=== PATIENT | female | born 1995 | race Caucasian/White ===

== ENCOUNTER 2020-09-29 03:56 | Inpatient (IN) | payer OTHER ==
[2020-09-29] MEDS ORDERED: SODIUM CHLORIDE 0.9% 1,000 ML IV STA (04:03)
[2020-09-29] MEDS ORDERED: NALOXONE 0.4 MG/ML 1 ML VIAL IVP STA (04:30)
--- NOTE | 2020-09-29 04:40 | ED ---
Overdose HPI - General Stated Complaint: Overdose Time Seen by Provider: 09/29/20 04:02 Source: EMS Mode of arrival: EMS Limitations: no limitations - History of Present Illness Initial Comments: This patient is 25-year-old woman brought to have evaluation after an overdose. The patient states that she had impulsively taken a handful of pills that were at the house she is standing. She states she was not being suicidal. Complaint: accidental overdose Onset/Timin -: minutes(s) Intent: other How Overdose Was Discovered: family/friend present at time Context: Intentional Overdose: relationship problems Treatments Prior to Arrival: none - Related Data Allergies Allergy/AdvReac Type Severity Reaction Status Date / Time No Known Allergies Allergy Verified 09/30/17 17:36 Review of Systems ROS Statement: Those systems with pertinent positive or pertinent negative responses have been documented in the HPI. ROS Other: All systems not noted in ROS Statement are negative. Constitutional: Denies: fever, chills, weakness Eyes: Denies: vision change Respiratory: Denies: cough, dyspnea Cardiovascular: Denies: chest pain, palpitations, edema, syncope Gastrointestinal: Reports: nausea. Denies: abdominal pain, vomiting, diarrhea Genitourinary: Denies: dysuria, hematuria Musculoskeletal: Denies: back pain Skin: Denies: rash Neurological: Denies: headache, weakness, numbness Psychiatric: Denies: depression, auditory hallucinations, visual hallucinations, homicidal thoughts, suicidal thoughts Past Medical History Additional Past Medical History / Comment(s): Chrons History of Any Multi-Drug Resistant Organisms: None Reported Additional Past Surgical History / Comment(s): surgical - 2 Past Psychological History: No Psychological Hx Reported Past Drug Use History: Cocaine, Heroin General Exam General appearance: alert, in no apparent distress Head exam: Present: atraumatic, normocephalic Eye exam: Present: normal appearance. Absent: scleral icterus, conjunctival injection ENT exam: Present: normal oropharynx Neck exam: Present: normal inspection Respiratory exam: Present: normal lung sounds bilaterally. Absent: respiratory distress, wheezes, rales, rhonchi, stridor Cardiovascular Exam: Present: regular rate, normal rhythm, normal heart sounds. Absent: systolic murmur, diastolic murmur, rubs, gallop GI/Abdominal exam: Present: soft. Absent: distended, tenderness, guarding, rebound, rigid, mass Extremities exam: Present: normal inspection, normal capillary refill Back exam: Present: normal inspection. Absent: CVA tenderness (R), CVA tenderness (L) Neurological exam: Present: alert, oriented X3 Psychiatric exam: Absent: depressed, agitated, anxious, flat affect, manic, homicidal ideation, suicidal ideation Skin exam: Present: warm, dry, intact, normal color. Absent: rash Course Vital Signs 09/29/20 09/29/20 09/29/20 03:56 04:31 04:34 Temperature 98.3 F Pulse Rate 114 H 96 92 Respiratory 16 12 Rate Blood Pressure 104/54 75/40 82/43 O2 Sat by Pulse 100 98 98 Oximetry 09/29/20 09/29/20 09/29/20 04:36 04:39 04:41 Temperature Pulse Rate 109 H 105 H 96 Respiratory 12 12 12 Rate Blood Pressure 114/66 106/62 95/62 O2 Sat by Pulse 100 100 Oximetry 09/29/20 09/29/20 09/29/20 04:44 04:45 04:48 Temperature Pulse Rate 115 H 111 H 89 Respiratory 12 12 12 Rate Blood Pressure 103/66 96/68 99/62 O2 Sat by Pulse 100 100 100 Oximetry 09/29/20 09/29/20 09/29/20 04:51 04:55 05:00 Temperature Pulse Rate 87 86 86 Respiratory 12 12 12 Rate Blood Pressure 100/57 97/57 94/53 O2 Sat by Pulse 100 100 100 Oximetry 09/29/20 09/29/20 09/29/20 05:05 05:10 05:15 Temperature Pulse Rate 85 85 85 Respiratory 12 12 12 Rate Blood Pressure 93/51 92/53 89/55 O2 Sat by Pulse 100 100 100 Oximetry 09/29/20 09/29/20 09/29/20 05:20 05:25 05:30 Temperature Pulse Rate 85 85 84 Respiratory 12 12 12 Rate Blood Pressure 93/51 92/53 95/54 O2 Sat by Pulse 100 100 100 Oximetry 09/29/20 09/29/20 09/29/20 05:35 05:40 05:45 Temperature Pulse Rate 85 84 84 Respiratory 12 12 12 Rate Blood Pressure 91/52 88/53 98/52 O2 Sat by Pulse 99 99 99 Oximetry 09/29/20 09/29/20 09/29/20 05:50 05:55 06:00 Temperature Pulse Rate 84 84 84 Respiratory 12 12 12 Rate Blood Pressure 87/53 84/52 88/57 O2 Sat by Pulse 99 99 99 Oximetry Medical Decision Making - Medical Decision Making 's patient is 25-year-old woman who presents to have evaluation after taking an overdose of what turned out to be quietapine and clonidine. Patient became moderately hypotensive but did respond to fluid bolus. The labs do show elevat ed AST ALT. The acute hepatitis panel was added, and per the recommendation of poison control patient will be treated as a possible subacute acetaminophen overdose. - Lab Data Result diagrams: 09/29/20 04:36 09/29/20 04:36 Lab Results 09/29/20 09/29/20 09/29/20 Range/Units 04:36 04:36 04:36 WBC 8.9 (3.8-10.6) k/uL RBC 4.59 (3.80-5.40) m/uL Hgb 13.7 (11.4-16.0) gm/dL Hct 41.5 (34.0-46.0) % MCV 90.4 (80.0-100.0) fL MCH 29.9 (25.0-35.0) pg MCHC 33.1 (31.0-37.0) g/dL RDW 14.5 (11.5-15.5) % Plt Count 238 (150-450) k/uL MPV 8.5 Neutrophils % 64 % Lymphocytes % 25 % Monocytes % 6 % Eosinophils % 1 % Basophils % 1 % Neutrophils # 5.7 (1.3-7.7) k/uL Lymphocytes # 2.3 (1.0-4.8) k/uL Monocytes # 0.5 (0-1.0) k/uL Eosinophils # 0.1 (0-0.7) k/uL Basophils # 0.0 (0-0.2) k/uL Sodium (137-145) mmol/L Potassium (3.5-5.1) mmol/L Chloride (98-107) mmol/L Carbon Dioxide (22-30) mmol/L Anion Gap mmol/L BUN (7-17) mg/dL Creatinine (0.52-1.04) mg/dL Est GFR (CKD-EPI)AfAm (>60 ml/min/1.73 sqM) Est GFR (CKD-EPI)NonAf (>60 ml/min/1.73 sqM) Glucose (74-99) mg/dL Calcium (8.4-10.2) mg/dL Total Bilirubin (0.2-1.3) mg/dL AST (14-36) U/L ALT (4-34) U/L Alkaline Phosphatase (38-126) U/L Total Protein (6.3-8.2) g/dL Albumin (3.5-5.0) g/dL Urine HCG, Qual Not Detected (Not Detectd) Salicylates mg/dL Urine Opiates Screen Not Detected (NotDetected) Ur Oxycodone Screen Not Detected (NotDetected) Urine Methadone Screen Not Detected (NotDetected) Ur Propoxyphene Screen Not Detected (NotDetected) Acetaminophen ug/mL Ur Barbiturates Screen Not Detected (NotDetected) U Tricyclic Antidepress Detected H (NotDetected) Ur Phencyclidine Scrn Not Detected (NotDetected) Ur Amphetamines Screen Not Detected (NotDetected) U Methamphetamines Scrn Not Detected (NotDetected) U Benzodiazepines Scrn Not Detected (NotDetected) Urine Cocaine Screen Detected H (NotDetected) U Marijuana (THC) Screen Detected H (NotDetected) Serum Alcohol mg/dL 09/29/20 Range/Units 04:36 WBC (3.8-10.6) k/uL RBC (3.80-5.40) m/uL Hgb (11.4-16.0) gm/dL Hct (34.0-46.0) % MCV (80.0-100.0) fL MCH (25.0-35.0) pg MCHC (31.0-37.0) g/dL RDW (11.5-15.5) % Plt Count (150-450) k/uL MPV Neutrophils % % Lymphocytes % % Monocytes % % Eosinophils % % Basophils % % Neutrophils # (1.3-7.7) k/uL Lymphocytes # (1.0-4.8) k/uL Monocytes # (0-1.0) k/uL Eosinophils # (0-0.7) k/uL Basophils # (0-0.2) k/uL Sodium 137 (137-145) mmol/L Potassium 3.7 (3.5-5.1) mmol/L Chloride 105 (98-107) mmol/L Carbon Dioxide 20 L (22-30) mmol/L Anion Gap 12 mmol/L BUN 7 (7-17) mg/dL Creatinine 0.57 (0.52-1.04) mg/dL Est GFR (CKD-EPI)AfAm >90 (>60 ml/min/1.73 sqM) Est GFR (CKD-EPI)NonAf >90 (>60 ml/min/1.73 sqM) Glucose 94 (74-99) mg/dL Calcium 9.3 (8.4-10.2) mg/dL Total Bilirubin 1.9 H (0.2-1.3) mg/dL AST 1003 H (14-36) U/L ALT 1752 H (4-34) U/L Alkaline Phosphatase 145 H (38-126) U/L Total Protein 6.1 L (6.3-8.2) g/dL Albumin 3.9 (3.5-5.0) g/dL Urine HCG, Qual (Not Detectd) Salicylates <1.0 mg/dL Urine Opiates Screen (NotDetected) Ur Oxycodone Screen (NotDetected) Urine Methadone Screen (NotDetected) Ur Propoxyphene Screen (NotDetected) Acetaminophen <10.0 ug/mL Ur Barbiturates Screen (NotDetected) U Tricyclic Antidepress (NotDetected) Ur Phencyclidine Scrn (NotDetected) Ur Amphetamines Screen (NotDetected) U Methamphetamines Scrn (NotDetected) U Benzodiazepines Scrn (NotDetected) Urine Cocaine Screen (NotDetected) U Marijuana (THC) Screen (NotDetected) Serum Alcohol 35 mg/dL - EKG Data -: EKG Interpreted by Me EKG shows normal: sinus rhythm, axis (Normal), intervals (Normal), QRS complexes (Normal) Rate: tachycardia (Rate 128 bpm) Interpretation: nonspecific ST-T wave changes Disposition Clinical Impression: Overdose Disposition: ADMITTED IP TO THIS [facility] Condition: Fair Is patient prescribed a controlled substance at d/c from ED?: No Referrals: None,Stated [Primary Care Provider] - 1-2 days
[2020-09-29 04:49] LABS: Basophils % (A) 1 %; Eosinophils # (A) 0.1 k/uL (0-0.7); Eosinophils % (A) 1 %; HCT 41.5 % (34.0-46.0); HGB 13.7 gm/dL (11.4-16.0); Lymphocytes # (A) 2.3 k/uL (1.0-4.8); Lymphocytes % (A) 25 %; MCH 29.9 pg (25.0-35.0); MCHC 33.1 g/dL (31.0-37.0); MCV 90.4 fL (80.0-100.0); Mean Platelet Volume 8.5; Monocytes # (A) 0.5 k/uL (0-1.0); Monocytes % (A) 6 %; Neutrophils # (A) 5.7 k/uL (1.3-7.7); Neutrophils % (A) 64 %; Platelet Count 238 k/uL (150-450); RBC 4.59 m/uL (3.80-5.40); RDW 14.5 % (11.5-15.5); WBC 8.9 k/uL (3.8-10.6)
--- NOTE | 2020-09-29 04:56 | XR ---
EXAMINATION TYPE: XR chest 1V portable DATE OF EXAM: 09/29/2020 COMPARISON: NONE HISTORY: Overdose. TECHNIQUE: Single view FINDINGS: Heart and mediastinum are normal. Lungs are clear. Diaphragm is normal. Bony thorax is inta ct. There are chest leads. IMPRESSION: Normal chest
[2020-09-29 04:58] LABS: Acetaminophen <10.0 ug/mL; African American GFR (CKD) >90 (>60 ml/min/1.73 sqM); Albumin 3.9 g/dL (3.5-5.0); Alcohol 35 mg/dL; Alkaline Phosphatase 145 U/L (38-126); Anion Gap 12 mmol/L; Blood Urea Nitrogen 7 mg/dL (7-17); Calcium 9.3 mg/dL (8.4-10.2); Carbon Dioxide 20 mmol/L (22-30); Chloride 105 mmol/L (98-107); Glucose 94 mg/dL (74-99); Non-African American GFR(CKD) >90 (>60 ml/min/1.73 sqM); Potassium 3.7 mmol/L (3.5-5.1); Salicylate <1.0 mg/dL; Sodium 137 mmol/L (137-145); Total Bilirubin 1.9 mg/dL (0.2-1.3); Total Protein 6.1 g/dL (6.3-8.2)
[2020-09-29 05:16] LABS: Cocaine Screen,Urine Detected (NotDetected); Phencyclidine Screen,Urine Not Detected (NotDetected)
[2020-09-29 05:17] LABS: Amphetamine Screen,Urine Not Detected (NotDetected); Barbiturate Screen,Urine Not Detected (NotDetected); Benzodiazepines Screen,Urine Not Detected (NotDetected); Methadone Screen, Urine Not Detected (NotDetected); Opiate Screen,Urine Not Detected (NotDetected); Oxycodone Screen, Urine Not Detected (NotDetected); Tricyclic Antidepressant,Urine Detected (NotDetected); Urn Cannabinoid Scrn Detected (NotDetected)
[2020-09-29 05:26] LABS: AST 1003 U/L (14-36)
[2020-09-29 05:27] LABS: ALT 1752 U/L (4-34)
[2020-09-29] MEDS ORDERED: NALOXONE 0.4 MG/ML 1 ML VIAL IV PRN (07:54)
[2020-09-29] MEDS ORDERED: ACETYLCYSTEINE IV 9,000 MG in DEXTROSE 5% IN WATER 200 ML IV ONE ×2 (08:30)
[2020-09-29] MEDS: SODIUM CHLORIDE 0.9% 1,000 ML IV SCH ×2 (09:00→18:27)
[2020-09-29 09:02] LABS: INR 1.4 (<1.2); Partial Thromboplastin Time 22.8 sec (22.0-30.0); Prothrombin Time 14.6 sec (9.0-12.0)
[2020-09-29] MEDS ORDERED: ACETYLCYSTEINE IV ONE ×2 (09:30→14:30)
[2020-09-29] MEDS ORDERED: WATER IV ONE ×2 (09:30→14:30)
[2020-09-29] MEDS ORDERED: DEXTROSE 5% IV ONE ×2 (09:30→14:30)
--- NOTE | 2020-09-29 12:16 | P.HPIM ---
History of Present Illness Patient is a 25-year-old female is admitted after overdose on Klonopin and Seroquel. Patient is excessively drowsy and unable to get much of the history from the patient patient is although arousable. Patient apparently denied any suicidal ideation. But did overdose on the tumor mentioned medications. Psychiatry was consulted. Patient has elevated liver enzymes with AST going to 1003 ALT 1752, because of which am patient is being admitted to medicine service. Patient is still not awake much. Patient had an EKG which is only showing mild increase in QTC up to 452 patient will be monitored on teletypesetter monitor. INR is bit elevated to 1.4. Hepatitis panel was ordered, urine drug screen is positive for cocaine, marijuana, tricyclic antidepressants. REVIEW OF SYSTEMS: CONSTITUTIONAL: No fever, no malaise, no fatigue. HEENT: No recent visual problems or hearing problems. Denied any sore throat. CARDIOVASCULAR: No chest pain, orthopnea, PND, no palpitations, no syncope. PULMONARY: No shortness of breath, no cough, no hemoptysis. GASTROINTESTINAL: No diarrhea, no nausea, no vomiting, no abdominal pain. NEUROLOGICAL: No headaches, no weakness, no numbness. HEMATOLOGICAL: Denies any bleeding or petechiae. GENITOURINARY: Denies any burning micturition, frequency, or urgency. MUSCULOSKELETAL/RHEUMATOLOGICAL: Denies any joint pain, swelling, or any muscle pain. ENDOCRINE: Denies any polyuria or polydipsia. The rest of the 14-point review of systems is negative. PHYSICAL EXAMINATION: GENERAL: The patient is excessively drowsy, not in any acute distress. Well developed, well nourished. HEENT: Pupils are round and equally reacting to light. EOMI. No scleral icterus. No conjunctival pallor. Normocephalic, atraumatic. No pharyngeal erythema. No thyromegaly. CARDIOVASCULAR: S1 and S2 present. No murmurs, rubs, or gallops. PULMONARY: Chest is clear to auscultation, no wheezing or crackles. ABDOMEN: Soft, nontender, nondistended, normoactive bowel sounds. No palpable organomegaly. MUSCULOSKELETAL: No joint swelling or deformity. EXTREMITIES: No cyanosis, clubbing, or pedal edema. NEUROLOGICAL: Gross neurological examination did not reveal any focal deficits. SKIN: No rashes. Assessment and plan -Overdose on Klonopin and Seroquel: Patient will be admitted to telemetry monit or patient with will be monitored for any acute prolongation. Poison control was contacted and they recommended a style cyst and although patient's Tylenol levels an not high and the there is no history patient to carry Tylenol-based medications to overdose on -Elevated liver enzymes, transaminases secondary to overdose on above-mentioned drugs we'll repeat the compress metabolic profile again later today and tomorrow morning and make sure they're not going up if they're going up will obtain an INR again patient present INR is 1.4. 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 -Mild elevated INR of 1.4 secondary to acute hepatitis from drug overdose DVT prophylaxis: Ambulation once she is awake Past Medical History Additional Past Medical History / Comment(s): Chrons History of Any Multi-Drug Resistant Organisms: None Reported Additional Past Surgical History / Comment(s): surgical - 2 Past Psychological History: No Psychological Hx Reported Past Drug Use History: Cocaine, Heroin Medications and Allergies Allergies Allergy/AdvReac Type Severity Reaction Status Date / Time No Known Allergies Allergy Verified 09/30/17 17:36 Physical Exam Vitals: Vital Signs Temp Pulse Resp BP Pulse Ox 09/29/20 11:13 74 99/58 09/29/20 08:00 79 18 101/54 99 09/29/20 07:30 80 16 101/55 99 09/29/20 07:00 80 16 103/57 99 09/29/20 06:30 81 16 100/58 99 09/29/20 06:00 84 12 88/57 99 09/29/20 05:55 84 12 84/52 99 09/29/20 05:50 84 12 87/53 99 09/29/20 05:45 84 12 98/52 99 09/29/20 05:40 84 12 88/53 99 09/29/20 05:35 85 12 91/52 99 09/29/20 05:30 84 12 95/54 100 09/29/20 05:25 85 12 92/53 100 09/29/20 05:20 85 12 93/51 100 09/29/20 05:15 85 12 89/55 100 09/29/20 05:10 85 12 92/53 100 09/29/20 05:05 85 12 93/51 100 08/08/21 05:00 86 12 94/53 100 09/29/20 04:55 86 12 97/57 100 09/29/20 04:51 87 12 100/57 100 09/29/20 04:48 89 12 99/62 100 09/29/20 04:45 111 H 12 96/68 100 09/29/20 04:44 115 H 12 103/66 100 09/29/20 04:41 96 12 95/62 100 09/29/20 04:39 105 H 12 106/62 100 09/29/20 04:36 109 H 12 114/66 09/29/20 04:34 92 82/43 98 09/29/20 04:31 96 12 75/40 98 09/29/20 03:56 98.3 F 114 H 16 104/54 100 Intake and Output 09/28/20 09/29/20 09/29/20 22:59 06:59 14:59 Other: Weight 58.967 kg Results CBC & Chem 7: 09/29/20 04:36 09/29/20 04:36 Labs: Abnormal Lab Results - Last 24 Hours (Table) 09/29/20 09/29/20 09/29/20 Range/Units 04:36 04:36 08:27 PT 14.6 H (9.0-12.0) sec INR 1.4 H (<1.2) Carbon Dioxide 20 L (22-30) mmol/L Total Bilirubin 1.9 H (0.2-1.3) mg/dL AST 1003 H (14-36) U/L ALT 1752 H (4-34) U/L Alkaline Phosphatase 145 H (38-126) U/L Total Protein 6.1 L (6.3-8.2) g/dL U Tricyclic Antidepress Detected H (NotDetected) Urine Cocaine Screen Detected H (NotDetected) U Marijuana (THC) Screen Detected H (NotDetected)
[2020-09-29 13:38] LABS: Hepatitis A Antibody IgM Non-Reactive (Non-Reactive); Hepatitis B Core IgM Non-Reactive (Non-Reactive); Hepatitis B Surface Antigen Non-Reactive (Non-Reactive); Hepatitis C IgG Antibody Reactive (Non-Reactive)
[2020-09-29 19:23] LABS: African American GFR (CKD) >90 (>60 ml/min/1.73 sqM); Albumin 2.9 g/dL (3.5-5.0); Alkaline Phosphatase 92 U/L (38-126); Anion Gap 7 mmol/L; Blood Urea Nitrogen 6 mg/dL (7-17); Calcium 8.7 mg/dL (8.4-10.2); Carbon Dioxide 23 mmol/L (22-30); Chloride 107 mmol/L (98-107); Glucose 113 mg/dL (74-99); Non-African American GFR(CKD) >90 (>60 ml/min/1.73 sqM); Potassium 3.9 mmol/L (3.5-5.1); Sodium 137 mmol/L (137-145); Total Bilirubin 2.6 mg/dL (0.2-1.3); Total Protein 5.4 g/dL (6.3-8.2)
[2020-09-29 19:36] LABS: ALT 1763 U/L (4-34); AST 1221 U/L (14-36)
[2020-09-30] MEDS: SODIUM CHLORIDE 0.9% 1,000 ML IV SCH ×3 (04:22→13:38)
[2020-09-30 08:31] LABS: African American GFR (CKD) >90 (>60 ml/min/1.73 sqM); Albumin 3.1 g/dL (3.5-5.0); Alkaline Phosphatase 115 U/L (38-126); Anion Gap 8 mmol/L; Blood Urea Nitrogen 8 mg/dL (7-17); Calcium 9.1 mg/dL (8.4-10.2); Carbon Dioxide 20 mmol/L (22-30); Chloride 110 mmol/L (98-107); Glucose 97 mg/dL (74-99); Non-African American GFR(CKD) >90 (>60 ml/min/1.73 sqM); Potassium 4.3 mmol/L (3.5-5.1); Sodium 138 mmol/L (137-145); Total Bilirubin 3.5 mg/dL (0.2-1.3); Total Protein 5.5 g/dL (6.3-8.2)
[2020-09-30 08:40] LABS: ALT 1938 U/L (4-34); AST 1208 U/L (14-36)
[2020-09-30 13:39] LABS: INR 1.2 (<1.2); Prothrombin Time 12.5 sec (9.0-12.0)
--- NOTE | 2020-09-30 13:45 | US ---
EXAMINATION TYPE: US gallbladder DATE OF EXAM: 09/30/2020 COMPARISON: NONE CLINICAL HISTORY: elevated liver enzymes. Overdose EXAM MEASUREMENTS: Liver Length: 14.9 cm Gallbladder Wall: 0.1 cm CBD: 0.4 cm Right Kidney: 10.3 x 4.8 x 3.6 cm Pancreas: wnl Liver: periportal wall brightness is noted especially left lobe Gallbladder: wnl Evidence for sonographic Biggs's sign: no CBD: wnl Right Kidney: No hydronephrosis or masses seen IMPRESSION: Nonspecific periportal wall brightness can be associated with hepatocellular disease dwayne elate clinically.
--- NOTE | 2020-09-30 14:11 | P.PN ---
Subjective Patient is a 25-year-old female is admitted after overdose on Klonopin and Seroquel. Patient is excessively drowsy and unable to get much of the history from the patient patient is although arousable. Patient apparently denied any suicidal ideation. But did overdose on the tumor mentioned medications. Psychiatry was consulted. Patient has elevated liver enzymes with AST going to 1003 ALT 1752, because of which am patient is being admitted to medicine service. Patient is still not awake much. Patient had an EKG which is only showing mild increase in QTC up to 452 patient will be monitored on complex human resources manager. INR is bit elevated to 1.4. Hepatitis panel was ordered, urine drug screen is positive for cocaine, marijuana, tricyclic antidepressants. 09/30/2020 Patient liver enzymes are a bit worse compared to yesterday but I'm expecting them to improve. Patient's INR improved from 1.4-1.2 patient is still drowsy goes back to sleep pretty quickly patient's QT is not prolonged more than as today. Repeat EKG is being obtained. I'll also obtain ultrasound of the liver. Assessment oncology will be consulted. We'll cut down the fluids to 75 mL per hour. Patient is positive for hepatitis C. Constitutional: Denied any fatigue denied any fever. Cardio vascular: denied any chest pain, palpitations Gastrointestinal denied any nausea vomiting Pulmonary: Denied any shortness of breath cough Neurologic denied any new focal deficits All inpatient medications were reviewed and appropriate changes in these medications as dictated in the interval history and assessment and plan. PHYSICAL EXAMINATION: GENERAL: The patient is excessively drowsy patient still falls back to sleep pretty quickly but bit more awake compared to yesterday, not in any acute distress. Well developed, well nourished. HEENT: Pupils are round and equally reacting to light. EOMI. No scleral icterus. No conjunctival pallor. Normocephalic, atraumatic. No pharyngeal erythema. No thyromegaly. CARDIOVASCULAR: S1 and S2 present. No murmurs, rubs, or gallops. PULMONARY: Chest is clear to auscultation, no wheezing or crackles. ABDOMEN: Soft, nontender, nondistended, normoactive bowel sounds. No palpable organomegaly. MUSCULOSKELETAL: No joint swelling or deformity. EXTREMITIES: No cyanosis, clubbing, or pedal edema. NEUROLOGICAL: Gross neurological examination did not reveal any focal deficits. SKIN: No rashes. Assessment and plan -Overdose on Klonopin and Seroquel: Patient will be admitted to complex human resources manager patient with will be monitored for any acute prolongation. Patient received a acetylcysteine [facility] clinicians from poison control although there is no evidence of acetaminophen overdose. -Hepatitis C probably chronic follow up with gastro-oncology as an outpatient -Elevated liver enzymes, transaminases secondary to overdose on above-mentioned drugs along with the hepatitis C. 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 -Mild elevated INR of 1.4 secondary to acute hepatitis from drug overdose DVT prophylaxis: Lovenox Objective - Vital Signs Vital signs: Vital Signs Temp 97.4 F L 09/30/20 08:00 Pulse 75 09/30/20 08:00 Resp 16 09/30/20 03:05 BP 107/72 09/30/20 08:00 Pulse Ox 98 09/30/20 08:00 Intake & Output 09/29/20 09/30/20 09/30/20 18:59 06:59 18:59 Intake Total 0 Output Total 1700 Balance 0 -1700 Weight 58.967 kg 55 kg Intake: Oral 0 Output: Urine 1700 Straight 800 Other: Voiding Method Toilet # Voids 1 0 - Labs CBC & Chem 7: 09/29/20 04:36 09/30/20 08:00 Labs: Abnormal Lab Results - Last 24 Hours (Table) 09/29/20 09/30/20 09/30/20 Range/Units 18:31 08:00 13:07 PT 12.5 H (9.0-12.0) sec INR 1.2 H (<1.2) Chloride 110 H (98-107) mmol/L Carbon Dioxide 20 L (22-30) mmol/L BUN 6 L (7-17) mg/dL Creatinine 0.46 L (0.52-1.04) mg/dL Glucose 113 H (74-99) mg/dL Total Bilirubin 2.6 H 3.5 H (0.2-1.3) mg/dL AST 1221 H 1208 H (14-36) U/L ALT 1763 H 1938 H (4-34) U/L Total Protein 5.4 L 5.5 L (6.3-8.2) g/dL Albumin 2.9 L 3.1 L (3.5-5.0) g/dL
--- NOTE | 2020-09-30 14:24 | P.CN ---
Psychiatric Consult - . Consult date: 09/30/20 Consult:: 09/30/20 14:23 IDENTIFYING DATA: This patient is a 25-year-old female who was admitted for overdose on Klonopin and Seroquel. HISTORY OF PRESENT ILLNESS: The patient presented to the hospital on 09/29/20, brought in by EMS for intentional overdose. As per ED note, the patient had impulsively taken a handful of pills, suspected to be Seroquel and Klonopin. The overdose was discovered by a friend was present at the time. Reportedly, the patient overdosed because of relationship problems with her current boyfriend. When he valued by this provider, the patient was quite somnolent and disoriented. She was not alert and oriented to place or time. The patient is unable to provide a clear history of events leading up to this hospitalization. When informed that it is reported that she overdosed and Seroquel and Klonopin, the patient vehemently denies this, stating that "I have never taken Seroquel in my life." She does admit that she has had significant issues with her boyfriend and describes an argument but is unable to provide a linear history. Furthermore, the patient does report a significant history of substance abuse and admits to using cocaine and other substances. She is unable to recall when she last used these. The patient is currently requesting to leave and expresses a strong desire to go to [facility]. As the patient is quite somnolent and disoriented, the interview was terminated as the patient is unable to appropriately engage and provide any clear history. PAST PSYCHIATRIC HISTORY: Vivitrol listed as a home medication for this patient. She is unable to provide any clear past psychiatric history. PAST MEDICAL HISTORY: Additional Past Medical History / Comment(s): Chrons History of Any Multi-Drug Resistant Organisms: None Reported Additional Past Surgical History / Comment(s): surgical - 2 Past Psychological History: No Psychological Hx Reported Past Drug Use History: Cocaine, Heroin ALLERGIES: NO KNOWN DRUG ALLERGIES. CHEMICAL DEPENDENCY HISTORY: Patient does admit to cocaine use and opiate abuse. She is unable to recall any other substance issues use prior to this admission. FAMILY PSYCHIATRIC/SUBSTANCE USE HISTORY: Unable to obtain SOCIAL HISTORY: Patient is unable to provide any clear history. She is noted to be single and unemployed. She has been staying with her significant other Ankit. MENTAL STATUS EXAM: General Appearance: Patient appears to be stated age but is somnolent, not alert, and unable to cooperate. Behavior: Patient is lying down in bed, in no acute distress, but one awoken, she is quite disoriented and displays significant psychomotor agitation. Speech: Patient's speech is nonspontaneous, slurred at times, with some word finding difficulty. Mood/Affect: Patient's mood is anxious. Affect is irritable and labile. Suicidality/Homicidality: Patient denies suicidal or homicidal ideation. Perceptions: Unable to assess Though content/process: Patient is quite disoriented and is disorganized. She is unable to provide any linear history. Memory and concentration: Patient is alert and oriented to person only. Concentration is grossly poor. Judgment and insight: Very poor. Laboratory Results - Last 24 Hours 09/29/20 09/30/20 09/30/20 18:31 08:00 13:07 PT 12.5 H INR 1.2 H Sodium 137 138 Potassium 3.9 4.3 Chloride 107 110 H Carbon Dioxide 23 20 L Anion Gap 7 8 BUN 6 L 8 Creatinine 0.46 L 0.54 Est GFR (CKD-EPI)AfAm >90 >90 Est GFR (CKD-EPI)NonAf >90 >90 Glucose 113 H 97 Calcium 8.7 9.1 Total Bilirubin 2.6 H 3.5 H AST 1221 H 1208 H ALT 1763 H 1938 H Alkaline Phosphatase 92 115 Total Protein 5.4 L 5.5 L Albumin 2.9 L 3.1 L Vital Signs Temp 97.4 F L 09/30/20 08:00 Pulse 75 09/30/20 08:00 Resp 16 09/30/20 03:05 BP 107/72 09/30/20 08:00 Pulse Ox 98 09/30/20 08:00 Intake & Output 09/29/20 09/30/20 09/30/20 18:59 06:59 18:59 Intake Total 0 Output Total 1700 Balance 0 -1700 Weight 58.967 kg 55 kg Intake: Oral 0 Output: Urine 1700 Straight 800 Other: Voiding Method Toilet # Voids 1 0 IMPRESSIONS: Acute intoxication - unknown substances Mood disorder, unspecified Cocaine use disorder History of opiate abuse PLAN: -At this time patient DOES NOT meet criteria for inpatient psychiatric admission. We will reevaluate the patient again tomorrow. Currently, the patient appears to be under the influence of the substances she has ingested and is unable to provide any clear and coherent history. She is grossly disorganized and is not alert and oriented to place or time. She is also quite somnolent and is struggling to stay awake during the initial psychiatric evaluation. -Patient DOES NOT have decision making capacity at this time and is unable to reason through and communicate/appreciate the risks, benefits and alternatives to treatment. -Would recommend the following medication changes/additions: No medication changes recommended at this time. -Continue 1:1 sitter for safety -Cannot leave AMA at this time. Patient will need a petition and certification if attempting to leave AMA. -Psychiatry will attempt to reevaluate the patient tomorrow.
[2020-09-30] MEDS ORDERED: traMADol 50 MG TAB PO PRN (16:11)
[2020-09-30] MEDS: ENOXAPARIN 40 MG/0.4 ML SYRINGE SQ SCH (17:43)
[2020-09-30] MEDS ORDERED: HALOPERIDOL LACTATE 5 MG/ML 1 ML VIAL IVP PRN (19:09)
[2020-09-30] MEDS ORDERED: DEXTROSE 5% IV ONE ×4 (21:35→22:35)
[2020-09-30] MEDS ORDERED: WATER IV ONE ×4 (21:35→22:35)
[2020-09-30] MEDS ORDERED: ACETYLCYSTEINE IV ONE ×4 (21:35→22:35)
[2020-10-01] MEDS ORDERED: HALOPERIDOL LACTATE 5 MG/ML 1 ML VIAL IM ONE (00:42)
[2020-10-01] MEDS ORDERED: LORazepam 2 MG/ML INJ IV STA (02:15)
[2020-10-01] MEDS ORDERED: THIAMINE 100 MG/ML 2 ML VIAL IM STA (02:17)
[2020-10-01] MEDS ORDERED: LORazepam 2 MG/ML INJ IV PRN ×2 (02:17)
--- NOTE | 2020-10-01 02:38 | P.EN ---
A team note 25 year old female admitted for drug over dose on antipsychotics. poison control recommended N acetylecestine. patient history is not clear, as patient is unable to provide any meaningful history she initially was somnolent upon presentation most of the time, however, today is day three of her hospital stay , and she seems to become more agitated, anxious and aggressive . she seems to be seeing things, and mumbling non coherent words. she suddenly stands up in her bed trying to leave. and staff has to reassure her to calm her down and keep her in bed. however she is becoming more aggressive, vital signs showing tachycardia and tremers suspicious of alcohol withdrawal picture . lungs clear to auscultation , BP stable , HR tachycardic , no fever, no leg edema bilaterally , abd soft. she was given multiple doses of Haldol earlier , without much benefit to improve her aggressive behavior which endangers her safety and safety of the staff plan will initiate CIWA protocol , for possible alcohol withdrawal syndrome patient will be given ativan as needed per CIWA scale manager security and safety at bedside will start with 2 mg of ativan IV now , due to patient showing signs of agitation and hallucinations (she seems to be looking at things in the room and mumbling words as if talking to someone ) she is also tachycardic and having tremors at this time 30 minutes were spent in the care of this patient
[2020-10-01 02:54] LABS: ABG Base Excess -1.4 mmol/L; ABG HCO3 23 mmol/L (21-25); ABG PCO2 36 mmHg (35-45); ABG PH 7.42 (7.35-7.45); ABG PO2 92 mmHg (83-108); ABG TCO2 24 mmol/L (19-24); Allen Test Performed? Yes
[2020-10-01] MEDS: SODIUM CHLORIDE 0.9% 1,000 ML IV SCH ×2 (07:33→18:19)
[2020-10-01] MEDS: ENOXAPARIN 40 MG/0.4 ML SYRINGE SQ SCH (09:46)
[2020-10-01 09:49] LABS: African American GFR (CKD) >90 (>60 ml/min/1.73 sqM); Anion Gap 7 mmol/L; Blood Urea Nitrogen 3 mg/dL (7-17); Calcium 8.7 mg/dL (8.4-10.2); Carbon Dioxide 24 mmol/L (22-30); Chloride 110 mmol/L (98-107); Glucose 98 mg/dL (74-99); Non-African American GFR(CKD) >90 (>60 ml/min/1.73 sqM); Potassium 3.6 mmol/L (3.5-5.1); Sodium 141 mmol/L (137-145)
[2020-10-01] MEDS: LORazepam 2 MG/ML INJ IV PRN ×2 (11:29→20:07)
[2020-10-01 11:40] LABS: Bilirubin, Conjugated 0.8 mg/dL (0.0-0.3); Bilirubin, Delta 1.1 mg/dL (0.0-0.2); Total Bilirubin 2.9 mg/dL (0.2-1.3); Total Protein 5.4 g/dL (6.3-8.2)
--- NOTE | 2020-10-01 13:55 | P.PN ---
Progress Note - Text Progress Note Date: 10/01/20 Interval History: Patient was seen resting in bed and was unarousable and unable to participate in the psychiatric evaluation. Present at bedside is the patient's parents. The patient's mother reports that the patient has been endorsing significant psychotic symptoms shortly prior to this admission. She reports that the patient has called her concerned that people been following her endorsing significant amounts paranoia and auditory hallucinations. The patient's mother does state that she is uncertain whether the patient has been using illicit substances when endorsing the psychotic symptoms. The patient has had a long history of substance abuse comes that have been going on for years. The patient's mother also describes that the patient has had a significant history of mood lability, unstable relationships, and impulsive and dangerous behaviors. The patient did recently receive Vivitrol. Per discussion with the patient's nurse, the patient became quite agitated and disoriented in the middle of the night. The patient believed that she was in a circus and began throwing objects off standing on her bed. She required the use of IM medications and received Haldol 4 mg and Ativan as well to sedate her. Mental Status Exam: General Appearance: Patient is lying down in bed, dressed in hospital gown, and appears in no acute distress. Behavior: Somnolent and unarousable. Speech: Unable to assess Mood/Affect: Unable to assess Suicidality/Homicidality: Unable to assess Perceptions: Unable to assess Though content/process: Unable to assess Memory and concentration: Unable to assess Judgment and insight: Unable to assess Vital Signs Temp 97.9 F 10/01/20 08:00 Pulse 114 H 10/01/20 08:00 Resp 20 10/01/20 02:45 BP 137/90 10/01/20 08:00 Pulse Ox 99 10/01/20 08:00 Intake & Output 09/30/20 10/01/20 10/01/20 18:59 06:59 18:59 Intake Total 50 250 Output Total 1725 Balance 50 -1725 250 Weight 41.5 kg Intake: Intake, IV Titration 250 Amount Dextrose 5% in Water 1, 250 000 ml @ 47.609 mls/hr IV .Q23H ONE with Acetylcysteine IV 19,000 mg Rx#:[id number] Oral 50 Output: Urine 1725 Straight 875 Other: Voiding Method Toilet Toilet # Voids 2 Laboratory Results - Last 24 Hours 10/01/20 10/01/20 10/01/20 02:52 08:42 08:42 Sample Site rbrac ABG pH 7.42 ABG pCO2 36 ABG pO2 92 ABG HCO3 23 ABG Total CO2 24 ABG O2 Saturation 98.0 H ABG Base Excess -1.4 Misael Test Yes FiO2 21 Sodium 141 Potassium 3.6 Chloride 110 H Carbon Dioxide 24 Anion Gap 7 BUN 3 L Creatinine 0.45 L Est GFR (CKD-EPI)AfAm >90 Est GFR (CKD-EPI)NonAf >90 Glucose 98 Calcium 8.7 Total Bilirubin 2.9 H Conjugated Bilirubin 0.8 H Unconjugated Bilirubin 1.0 Delta Bilirubin 1.1 H AST 919 H ALT 1658 H Alkaline Phosphatase 112 Total Protein 5.4 L Albumin 3.0 L Assessment Acute intoxication - unknown substances Mood disorder, unspecified Cocaine use disorder History of opiate abuse Plan: -At this time patient DOES NOT meet criteria for inpatient psychiatric admission. We will reevaluate the patient again tomorrow. The patient continues to be unable to participate in psychiatric evaluation. She is quite somnolent and unarousable at this time. -Will order TSH, B12, folate, and ammonia level. -Patient DOES NOT have decision making capacity at this time and is unable to reason through and communicate/appreciate the risks, benefits and alternatives to treatment. -Would recommend the following medication changes/additions: No medication changes recommended at this time. -Continue 1:1 sitter for safety -Cannot leave AMA at this time. Patient will need a petition and certification if attempting to leave AMA. -Psychiatry will attempt to reevaluate the patient tomorrow.
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
--- NOTE | 2020-10-01 17:49 | P.PN ---
Subjective Patient is a 25-year-old female is admitted after overdose on Klonopin and Seroquel. Patient is excessively drowsy and unable to get much of the history from the patient patient is although arousable. Patient apparently denied any suicidal ideation. But did overdose on the tumor mentioned medications. Psychiatry was consulted. Patient has elevated liver enzymes with AST going to 1003 ALT 1752, because of which am patient is being admitted to medicine service. Patient is still not awake much. Patient had an EKG which is only showing mild increase in QTC up to 452 patient will be monitored on engine monitor. INR is bit elevated to 1.4. Hepatitis panel was ordered, urine drug screen is positive for cocaine, marijuana, tricyclic antidepressants. 09/30/2020 Patient liver enzymes are a bit worse compared to yesterday but I'm expecting them to improve. Patient's INR improved from 1.4-1.2 patient is still drowsy goes back to sleep pretty quickly patient's QT is not prolonged more than as today. Repeat EKG is being obtained. I'll also obtain ultrasound of the liver. Assessment oncology will be consulted. We'll cut down the fluids to 75 mL per hour. Patient is positive for hepatitis C. 10/01/2020 Because of severe agitation which is uncontrolled by Haldol patient received Ativan believing that patient may have alcohol withdrawals although there is no evidence of all call abuse history. Patient is positive for hepatitis C because of which are gastric body was consulted and gastric body is obtaining hepatitis C quantitative and genotype pain. Patient is quite a bit drowsy because of Ativan. Patient liver enzymes although coming down. Patient TSH is extremely low at 0.015 and obtain T4 levels., Ultrasound did not show any significant abnormality patient globin is also coming down at this time. Patient was a valid by gastroneurology as well as psychiatry as today. Patient is quite drowsy arousable Constitutional: Denied any fatigue denied any fever. Cardio vascular: denied any chest pain, palpitations Gastrointestinal denied any nausea vomiting Pulmonary: Denied any shortness of breath cough Neurologic denied any new focal deficits All inpatient medications were reviewed and appropriate changes in these medications as dictated in the interval history and assessment and plan. PHYSICAL EXAMINATION: GENERAL: The patient is excessively drowsy patient still falls back to sleep pretty quickly , not in any acute distress. Well developed, well nourished. HEENT: Pupils are round and equally reacting to light. EOMI. No scleral icterus. No conjunctival pallor. Normocephalic, atraumatic. No pharyngeal erythema. No thyromegaly. CARDIOVASCULAR: S1 and S2 present. No murmurs, rubs, or gallops. PULMONARY: Chest is clear to auscultation, no wheezing or crackles. ABDOMEN: Soft, nontender, nondistended, normoactive bowel sounds. No palpable organomegaly. MUSCULOSKELETAL: No joint swelling or deformity. EXTREMITIES: No cyanosis, clubbing, or pedal edema. NEUROLOGICAL: Gross neurological examination did not reveal any focal deficits. SKIN: No rashes. Assessment and plan -Overdose on Klonopin and Seroquel: Patient was monitored in engine monitor patient is still drowsy because of Ativan she received today. -Hepatitis C probably chronic follow up with gastro-oncology as an outpatient -Elevated liver enzymes, transaminases secondary to overdose on above-mentioned drugs along with the hepatitis C. 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 -Mild elevated INR of 1.4 secondary to acute hepatitis from drug overdose INR did improve -Extremely low TSH will obtain T4 level DVT prophylaxis: Lovenox Objective - Vital Signs Vital signs: Vital Signs Temp 97.9 F 10/01/20 08:00 Pulse 94 10/01/20 12:00 Resp 20 10/01/20 02:45 BP 132/76 10/01/20 12:00 Pulse Ox 98 10/01/20 12:00 Intake & Output 09/30/20 10/01/20 10/01/20 18:59 06:59 18:59 Intake Total 50 250 Output Total 1725 Balance 50 -1725 250 Weight 41.5 kg Intake: Intake, IV Titration 250 Amount Dextrose 5% in Water 1, 250 000 ml @ 47.609 mls/hr IV .Q23H ONE with Acetylcysteine IV 19,000 mg Rx#:[id number] Oral 50 Output: Urine 1725 Straight 875 Other: Voiding Method Toilet Toilet # Voids 2 - Labs CBC & Chem 7: 09/29/20 04:36 10/01/20 08:42 Labs: Abnormal Lab Results - Last 24 Hours (Table) 10/01/20 10/01/20 10/01/20 Range/Units 02:52 08:42 08:42 ABG O2 Saturation 98.0 H (94-97) % Chloride 110 H (98-107) mmol/L BUN 3 L (7-17) mg/dL Creatinine 0.45 L (0.52-1.04) mg/dL Total Bilirubin 2.9 H (0.2-1.3) mg/dL Conjugated Bilirubin 0.8 H (0.0-0.3) mg/dL Delta Bilirubin 1.1 H (0.0-0.2) mg/dL AST 919 H (14-36) U/L ALT 1658 H (4-34) U/L Total Protein 5.4 L (6.3-8.2) g/dL Albumin 3.0 L (3.5-5.0) g/dL TSH (0.465-4.680) mIU/L 10/01/20 Range/Units 15:04 ABG O2 Saturation (94-97) % Chloride (98-107) mmol/L BUN (7-17) mg/dL Creatinine (0.52-1.04) mg/dL Total Bilirubin (0.2-1.3) mg/dL Conjugated Bilirubin (0.0-0.3) mg/dL Delta Bilirubin (0.0-0.2) mg/dL AST (14-36) U/L ALT (4-34) U/L Total Protein (6.3-8.2) g/dL Albumin (3.5-5.0) g/dL TSH <0.015 L (0.465-4.680) mIU/L
[2020-10-01] MEDS: THIAMINE 100 MG TAB PO SCH (18:18)
[2020-10-01 18:47] LABS: T4, Free (Free Thyroxine) 1.61 ng/dL (0.78-2.19)
[2020-10-01] MEDS ORDERED: DEXTROSE 5% IV ONE (22:00)
[2020-10-01] MEDS ORDERED: WATER IV ONE (22:00)
[2020-10-01] MEDS ORDERED: ACETYLCYSTEINE IV ONE (22:00)
[2020-10-02] MEDS: SODIUM CHLORIDE 0.9% 1,000 ML IV SCH ×3 (05:54→21:10)
[2020-10-02] MEDS: THIAMINE 100 MG TAB PO SCH ×2 (06:55→17:56)
[2020-10-02] MEDS: ENOXAPARIN 40 MG/0.4 ML SYRINGE SQ SCH (08:25)
[2020-10-02 08:40] LABS: INR 1.3 (<1.2); Prothrombin Time 13.5 sec (9.0-12.0)
[2020-10-02 08:46] LABS: African American GFR (CKD) >90 (>60 ml/min/1.73 sqM); Albumin 3.4 g/dL (3.5-5.0); Alkaline Phosphatase 118 U/L (38-126); Anion Gap 9 mmol/L; Blood Urea Nitrogen 4 mg/dL (7-17); Calcium 8.8 mg/dL (8.4-10.2); Carbon Dioxide 21 mmol/L (22-30); Chloride 108 mmol/L (98-107); Creatine Kinase 933 U/L (30-135); Glucose 97 mg/dL (74-99); Non-African American GFR(CKD) >90 (>60 ml/min/1.73 sqM); Potassium 3.4 mmol/L (3.5-5.1); Sodium 138 mmol/L (137-145); Total Bilirubin 3.8 mg/dL (0.2-1.3); Total Protein 5.9 g/dL (6.3-8.2)
[2020-10-02 09:02] LABS: ALT 1766 U/L (4-34); AST 1009 U/L (14-36)
[2020-10-02 10:16] LABS: HCT 36.6 % (34.0-46.0); HGB 12.6 gm/dL (11.4-16.0); MCH 30.7 pg (25.0-35.0); MCHC 34.3 g/dL (31.0-37.0); MCV 89.7 fL (80.0-100.0); Platelet Count 204 k/uL (150-450); RBC 4.08 m/uL (3.80-5.40); RDW 14.6 % (11.5-15.5); WBC 5.5 k/uL (3.8-10.6)
[2020-10-02] MEDS ORDERED: POTASSIUM CHLORIDE ER 20 MEQ TAB.ER PO STA (13:08)
--- NOTE | 2020-10-02 13:09 | P.PN ---
Subjective Patient is a 25-year-old female is admitted after overdose on Klonopin and Seroquel. Patient is excessively drowsy and unable to get much of the history from the patient patient is although arousable. Patient apparently denied any suicidal ideation. But did overdose on the tumor mentioned medications. Psychiatry was consulted. Patient has elevated liver enzymes with AST going to 1003 ALT 1752, because of which am patient is being admitted to medicine service. Patient is still not awake much. Patient had an EKG which is only showing mild increase in QTC up to 452 patient will be monitored on brake repairer. INR is bit elevated to 1.4. Hepatitis panel was ordered, urine drug screen is positive for cocaine, marijuana, tricyclic antidepressants. 09/30/2020 Patient liver enzymes are a bit worse compared to yesterday but I'm expecting them to improve. Patient's INR improved from 1.4-1.2 patient is still drowsy goes back to sleep pretty quickly patient's QT is not prolonged more than as today. Repeat EKG is being obtained. I'll also obtain ultrasound of the liver. Assessment oncology will be consulted. We'll cut down the fluids to 75 mL per hour. Patient is positive for hepatitis C. 10/01/2020 Because of severe agitation which is uncontrolled by Haldol patient received Ativan believing that patient may have alcohol withdrawals although there is no evidence of all call abuse history. Patient is positive for hepatitis C because of which are gastric body was consulted and gastric body is obtaining hepatitis C quantitative and genotype pain. Patient is quite a bit drowsy because of Ativan. Patient liver enzymes although coming down. Patient TSH is extremely low at 0.015 and obtain T4 levels., Ultrasound did not show any significant abnormality patient globin is also coming down at this time. Patient was a valid by gastroneurology as well as psychiatry as today. 10/02/2020 Patient is bit more awake today, patient liver enzymes are still elevated to about thousand. This is probably from a hepatitis C the patient is still drowsy because of Ativan she is receiving Ativan will be scheduled and do not believe patient has all call withdraws patient was evaluated by psychiatry discussed with psychiatry they're not recommending any inpatient psychiatry hospitalization as a patient overdosed to get high rather than suicidal ideation. Patient's potassium is low which will be replaced Patient is still drowsy arousable Constitutional: Denied any fatigue denied any fever. Cardio vascular: denied any chest pain, palpitations Gastrointestinal denied any nausea vomiting Pulmonary: Denied any shortness of breath cough Neurologic denied any new focal deficits All inpatient medications were reviewed and appropriate changes in these medications as dictated in the interval history and assessment and plan. PHYSICAL EXAMINATION: GENERAL: The patient is excessively drowsy patient still falls back to sleep pretty quickly , not in any acute distress. Well developed, well nourished. HEENT: Pupils are round and equally reacting to light. EOMI. No scleral icterus. No conjunctival pallor. Normocephalic, atraumatic. No pharyngeal erythema. No thyromegaly. CARDIOVASCULAR: S1 and S2 present. No murmurs, rubs, or gallops. PULMONARY: Chest is clear to auscultation, no wheezing or crackles. ABDOMEN: Soft, nontender, nondistended, normoactive bowel sounds. No palpable organomegaly. MUSCULOSKELETAL: No joint swelling or deformity. EXTREMITIES: No cyanosis, clubbing, or pedal edema. NEUROLOGICAL: Gross neurological examination did not reveal any focal deficits. SKIN: No rashes. Assessment and plan -Overdose on Klonopin and Seroquel: Patient was monitored in brake repairer patient is still drowsy because of Ativan she received today. -Hepatitis C probably chronic follow up with gastro-oncology as an outpatient -Elevated liver enzymes, transaminases secondary to overdose on above-mentioned drugs along with the hepatitis C. 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 -Mild elevated INR of secondary to acute hepatitis from drug overdose INR did improve -Extremely low TSH, T4 level is within normal limits patient probably has sick euthyroid syndrome DVT prophylaxis: Lovenox Objective - Vital Signs Vital signs: Vital Signs Temp 97.8 F 10/02/20 10:46 Pulse 90 10/02/20 10:46 Resp 15 10/02/20 10:46 BP 119/81 10/02/20 10:46 Pulse Ox 100 10/02/20 10:46 Intake & Output 10/01/20 10/02/20 10/02/20 18:59 06:59 18:59 Intake Total 250 Output Total 300 450 300 Balance -50 -450 -300 Weight 40 kg 40 kg Intake: Intake, IV Titration 250 Amount Dextrose 5% in Water 1, 250 000 ml @ 47.609 mls/hr IV .Q23H ONE with Acetylcysteine IV 19,000 mg Rx#:[id number] Output: Urine 300 450 300 Other: Voiding Method Toilet Diaper Diaper # Voids 2 - Labs CBC & Chem 7: 10/02/20 09:47 10/02/20 07:51 Labs: Abnormal Lab Results - Last 24 Hours (Table) 10/01/20 10/02/20 10/02/20 Range/Units 15:04 07:51 07:51 PT 13.5 H (9.0-12.0) sec INR 1.3 H (<1.2) Potassium 3.4 L (3.5-5.1) mmol/L Chloride 108 H (98-107) mmol/L Carbon Dioxide 21 L (22-30) mmol/L BUN 4 L (7-17) mg/dL Creatinine 0.39 L (0.52-1.04) mg/dL Total Bilirubin 3.8 H (0.2-1.3) mg/dL AST 1009 H (14-36) U/L ALT 1766 H (4-34) U/L Creatine Kinase 933 H (30-135) U/L Total Protein 5.9 L (6.3-8.2) g/dL Albumin 3.4 L (3.5-5.0) g/dL TSH <0.015 L (0.465-4.680) mIU/L
--- NOTE | 2020-10-02 13:13 | P.PN ---
Progress Note - Text Progress Note Date: 10/02/20 Interval History: Patient was seen resting in bed and awake and alert and participated in the psychiatric interview. The patient is a poor historian in regards to events leading up to this hospitalization. She vehemently denies any intentional overdose. She does not recall ever taking klonopin or seroquel. She reports she was drinking a significant amount of alcohol, just to enjoy herself. She does admit to recent use of crack cocaine 2-3 days prior to her admission to this hospital. The patient vehemently denies any suicidal or homicidal ideation, intention, and/or plan. She denies any auditory or visual hallucinations. She reports no paranoia or delusions. The patient expresses that she hasn't been using drugs since she was 17 years old. She reports that she began with IV heroin use at the age of 17. She reports that she had some time with sobriety and began using again at the age of 24. She reports that she has been to inpatient rehabilitation multiple times. The patient states that she "does not do well in these controlled settings." She states that she feels like she "has no control over my life and others are controlling and I hated." The patient was informed that she has control over whether she uses drugs or not and that was the reason why she was brought to the hospital in the first place. She does a history of psychotic symptoms, but this occurs in the context of heavy substance abuse. She reports that this occurred when she was using a lot of "uppers." The patient is requesting discharge. Mental Status Exam: General Appearance: Patient is lying down in bed, dressed in hospital gown, and appears in no acute distress. Behavior: Psychomotor activity is normal. Patient is eating lunch calmly. Eye contact was appropriate. Speech: The patient's speech is spontaneous, with normal rate, tone, volume, and fluency. Mood/Affect: The patient's mood is "feeling okay." Affect is obstinate and at times irritable. Suicidality/Homicidality: The patient vehemently denies any suicidal or homicidal ideation, intention, and/or plan. Perceptions: The patient is not endorsing any auditory or visual hallucinations. Though content/process: Thought content is devoid of any delusional thoughts. Thought process appears to be linear and logical. Memory and concentration: The patient's memory continues to be somewhat impaired but her concentration appears to be grossly intact. She is currently alert and oriented in all spheres. Judgment and insight: The patient displays significantly poor judgment, and somewhat limited insight due to her severe and chronic substance abuse. Vital Signs Temp 97.8 F 10/02/20 10:46 Pulse 90 10/02/20 10:46 Resp 15 10/02/20 10:46 BP 119/81 10/02/20 10:46 Pulse Ox 100 10/02/20 10:46 Intake & Output 10/01/20 10/02/20 10/02/20 18:59 06:59 18:59 Intake Total 250 Output Total 300 450 300 Balance -50 -450 -300 Weight 40 kg 40 kg Intake: Intake, IV Titration 250 Amount Dextrose 5% in Water 1, 250 000 ml @ 47.609 mls/hr IV .Q23H ONE with Acetylcysteine IV 19,000 mg Rx#:[id number] Output: Urine 300 450 300 Other: Voiding Method Toilet Diaper Diaper # Voids 2 Laboratory Results - Last 24 Hours 10/01/20 10/01/20 10/02/20 15:04 15:04 07:51 WBC RBC Hgb Hct MCV MCH MCHC RDW Plt Count MPV PT 13.5 H INR 1.3 H Sodium Potassium Chloride Carbon Dioxide Anion Gap BUN Creatinine Est GFR (CKD-EPI)AfAm Est GFR (CKD-EPI)NonAf Glucose Calcium Total Bilirubin AST ALT Alkaline Phosphatase Ammonia 29 Creatine Kinase Total Protein Albumin TSH <0.015 L Free T4 1.61 10/02/20 10/02/20 10/02/20 07:51 09:06 09:47 WBC 5.5 RBC 4.08 Hgb 12.6 Hct 36.6 MCV 89.7 MCH 30.7 MCHC 34.3 RDW 14.6 Plt Count 204 MPV 9.0 PT INR Sodium 138 Potassium 3.4 L Chloride 108 H Carbon Dioxide 21 L Anion Gap 9 BUN 4 L Creatinine 0.39 L Est GFR (CKD-EPI)AfAm >90 Est GFR (CKD-EPI)NonAf >90 Glucose 97 Calcium 8.8 Total Bilirubin 3.8 H AST 1009 H ALT 1766 H Alkaline Phosphatase 118 Ammonia 10 Creatine Kinase 933 H Total Protein 5.9 L Albumin 3.4 L TSH Free T4 Assessment Acute intoxication - patient reports alcohol, cocaine, and possibly other drugs. Mood disorder, unspecified Cocaine use disorder History of opiate abuse Plan: -At this time patient DOES NOT meet criteria for inpatient psychiatric admission. It appears that the patient was intoxicated as a recreational activity and did not intend to overdose or be altered to the point warranting hospitalization. She is vehemently denying any suicidal or homicidal ideation, intention, and/or plan. She is future oriented and desires to continue her substance abuse treatment in the outpatient setting. -Would recommend the following medication changes/additions: No medication changes recommended at this time. -Continue 1:1 sitter for safety -Cannot leave AMA at this time. Patient will need a petition and certification if attempting to leave AMA. -Recommend social work consult to provide patient with resources for substance abuse. -Patient is currently cleared psychiatrically for discharge. Primary issue is the patient's substance abuse. We will continue to follow as long as the patient is admitted on the hospital floor and will reevaluate if there are any changes in situation and plan.
--- NOTE | 2020-10-02 14:00 | P.PN ---
Subjective Progress Note Date: 10/02/20 Principal diagnosis: Transaminitis, overdose Patient is seen and examined lying in bed. She continues to have a sitter at the bedside. Nursing reports she was more alert and answering questions. She is sleeping at this time abut arousable. She states she was never diagnosed with Hepatitis C but her boyfriend has hepatitis C and ther have shared needles. She denies any known liver disease and states she does not drink heavily. She denies any abdominal pain, nausea, or vomiting. Ammonia levels have been normal. AST and ALT trending up. The liver serology ordered and pending. Hepatitis C quantitative and genotype pending. Objective - Vital Signs Vital signs: Vital Signs Temp 97.8 F 10/02/20 10:46 Pulse 90 10/02/20 10:46 Resp 15 10/02/20 10:46 BP 119/81 10/02/20 10:46 Pulse Ox 100 10/02/20 10:46 Intake & Output 10/01/20 10/02/20 10/02/20 18:59 06:59 18:59 Intake Total 250 Output Total 300 450 300 Balance -50 -450 -300 Weight 40 kg 40 kg Intake: Intake, IV Titration 250 Amount Dextrose 5% in Water 1, 250 000 ml @ 47.609 mls/hr IV .Q23H ONE with Acetylcysteine IV 19,000 mg Rx#:[id number] Output: Urine 300 450 300 Other: Voiding Method Toilet Diaper Diaper # Voids 2 - Exam General appearance: The patient is sleeping but easily arousable. Oriented to self, appears in no acute distress. HET: Head is normocephalic and atraumatic. Conjunctiva pink. Sclera anicteric. Neck: Supple without lymphadenopathy. Abdomen: Soft, nontender, nondistended with bowel sounds. No guarding or rigidity. Extremities: Normal skin color and turgor. No pedal edema Skin: No rashes, no jaundice Neurological: No focal deficits. Sleeping but arousable. Oriented to self. - Labs CBC & Chem 7: 10/02/20 09:47 10/02/20 07:51 Labs: Abnormal Lab Results - Last 24 Hours (Table) 10/01/20 10/01/20 10/02/20 Range/Units 08:42 15:04 07:51 PT 13.5 H (9.0-12.0) sec INR 1.3 H (<1.2) Potassium (3.5-5.1) mmol/L Chloride (98-107) mmol/L Carbon Dioxide (22-30) mmol/L BUN (7-17) mg/dL Creatinine (0.52-1.04) mg/dL Total Bilirubin 2.9 H (0.2-1.3) mg/dL Conjugated Bilirubin 0.8 H (0.0-0.3) mg/dL Delta Bilirubin 1.1 H (0.0-0.2) mg/dL AST 919 H (14-36) U/L ALT 1658 H (4-34) U/L Creatine Kinase (30-135) U/L Total Protein 5.4 L (6.3-8.2) g/dL Albumin 3.0 L (3.5-5.0) g/dL TSH <0.015 L (0.465-4.680) mIU/L 10/02/20 Range/Units 07:51 PT (9.0-12.0) sec INR (<1.2) Potassium 3.4 L (3.5-5.1) mmol/L Chloride 108 H (98-107) mmol/L Carbon Dioxide 21 L (22-30) mmol/L BUN 4 L (7-17) mg/dL Creatinine 0.39 L (0.52-1.04) mg/dL Total Bilirubin 3.8 H (0.2-1.3) mg/dL Conjugated Bilirubin (0.0-0.3) mg/dL Delta Bilirubin (0.0-0.2) mg/dL AST 1009 H (14-36) U/L ALT 1766 H (4-34) U/L Creatine Kinase 933 H (30-135) U/L Total Protein 5.9 L (6.3-8.2) g/dL Albumin 3.4 L (3.5-5.0) g/dL TSH (0.465-4.680) mIU/L Assessment and Plan (1) Transaminitis Narrative/Plan: 25-year-old female who presented to the emergency department and was brought in by friends for intentional overdose. Reportedly took several Klonopin and Seroquel. She was noted to have elevated LFTs on admission. Abdominal ultrasound was completed and showed nonspecific. Orbital [place] as can be associated with hepatocellular disease correlate clinically. The patient is presenting with altered mental status, she is a poor historian at this time and is only oriented to self. States she does have a history of hepatitis C, however unsure if it has been treated. She does admit to cocaine, marijuana, and alcohol use. Also states she has used here when in the past. Likely dealing with acute medication induced hepatitis. LFTs are currently trending down. Current Visit: Yes Status: Acute Code(s): R74.01 - ELEVATION OF LEVELS OF LIVER TRANSAMINASE LEVELS SNOMED Code(s): 139688862 (2) Hepatitis C antibody positive in blood Current Visit: Yes Status: Acute Code(s): R76.8 - OTHER SPECIFIED ABNORMAL IMMUNOLOGICAL FINDINGS IN SERUM SNOMED Code(s): 869431246 (3) Overdose Current Visit: Yes Status: Acute Code(s): T50.901A - POISONING BY UNSP DRUG/MEDS/BIOL SUBST, ACCIDENTAL, INIT SNOMED Code(s): 05366833 (4) Altered mental status Current Visit: Yes Status: Acute Code(s): R41.82 - ALTERED MENTAL STATUS, UNSPECIFIED SNOMED Code(s): 148735126 Plan: 1. Repeat daily CMP and INR 2. Continue symptomatic and supportive care 3. Continue medical management per primary team 4. Hepatitis C quantitative and genotype ordered, pending 5. Agree with CIWA protocol 6. Full liver serology ordered, along with CMV, HSV, EBV, pending Thank you for this consultation, we will continue to follow Dr. Gonzalez I agree with the dictator's note, documented as a scribe by Doreen Paul.
[2020-10-02 14:54] LABS: Folate, Serum >24.0 ng/mL
[2020-10-02 15:23] VITALS: RESP 16
[2020-10-02] MEDS ORDERED: WATER IV SCH (21:00)
[2020-10-02] MEDS ORDERED: ACETYLCYSTEINE IV SCH (21:00)
[2020-10-02] MEDS ORDERED: DEXTROSE 5% IV SCH (21:00)
[2020-10-03 00:54] LABS: Alpha Fetoprotein, Tumor Mkr 4.2 ng/mL (0.0-7.9)
[2020-10-03] MEDS: SODIUM CHLORIDE 0.9% 1,000 ML IV SCH ×2 (03:46→09:21)
[2020-10-03] MEDS: THIAMINE 100 MG TAB PO SCH (07:03)
[2020-10-03] MEDS ORDERED: WATER IV SCH (07:30)
[2020-10-03] MEDS ORDERED: ACETYLCYSTEINE IV SCH (07:30)
[2020-10-03] MEDS ORDERED: DEXTROSE 5% IV SCH (07:30)
[2020-10-03 07:47] LABS: AST 609 U/L (14-36); African American GFR (CKD) >90 (>60 ml/min/1.73 sqM); Albumin 2.8 g/dL (3.5-5.0); Alkaline Phosphatase 153 U/L (38-126); Anion Gap 7 mmol/L; Blood Urea Nitrogen 5 mg/dL (7-17); Calcium 8.8 mg/dL (8.4-10.2); Carbon Dioxide 20 mmol/L (22-30); Chloride 112 mmol/L (98-107); Glucose 109 mg/dL (74-99); Non-African American GFR(CKD) >90 (>60 ml/min/1.73 sqM); Potassium 3.8 mmol/L (3.5-5.1); Sodium 139 mmol/L (137-145); Total Bilirubin 2.1 mg/dL (0.2-1.3); Total Protein 5.2 g/dL (6.3-8.2)
[2020-10-03 08:04] LABS: ALT 1312 U/L (4-34)
[2020-10-03] MEDS: ENOXAPARIN 40 MG/0.4 ML SYRINGE SQ SCH (08:10)
[2020-10-03 11:13] VITALS: BP 121/68; PULSE 88; TEMP 97.8
[2020-10-03 11:21] VITALS: BMI 23.3
[2020-10-03 13:13] LABS: EBV-EA (IgG) 0.2 AI; EBV-EBNA(IgG) >8.0 AI; EBV-VCA (IgG) >8.0 AI; EBV-VCA (IgM) <0.2 AI
--- NOTE | 2020-10-03 13:20 | P.DS ---
Providers Date of admission: 09/29/20 07:54 Attending physician: Blair Belle MD Consults: 09/29/20 07:57 Consult Physician Routine Consulting Provider: Jose D Rider Consult Reason/Comments: Overdose Do you want consulting provider notified?: Yes 09/30/20 12:49 Consult Physician Routine Consulting Provider: Annmarie Devine Consult Reason/Comments: Transaminitis Do you want consulting provider notified?: Yes Primary care physician: Stated None Hospital Course: Diagnoses Overdose on Klonopin and Seroquel: Patient was monitored in telemetry, patient was drowsy due to the Ativan she received, improved today. Hepatitis C probably chronic follows GI as an outpatient Elevated liver enzymes, transaminases secondary to OD on above-mentioned drugs along with hepatitis C. Improving Metabolic encephalopathy secondary to obesity on above-mentioned drugs Nonprescription drug abuse: Counseled will be provided Mild elevated INR secondary to acute hepatitis from the drug OD, INR did improve Extra TSH, T4 level is within normal limits, patient probably has sick euthyroid syndrome Discharge disposition Patient will be discharged home with self-care. Patient has been cleared by psychiatric services who did not recommend inpatient treatment this time. Patient will need to follow-up with psychology services, PCP, GI. Hospital course Patient is a 25-year-old female is admitted after overdose on Klonopin and Seroquel. Patient is excessively drowsy and unable to get much of the history from the patient patient is although arousable, on admission. Patient apparently denied any suicidal ideation. But did overdose on Seroquel and Klonopin. Psychiatry was consulted. Patient did require a dose of IV push Haldol on 10/01/20 for acute agitation. No further episodes. Patient received 2 doses of IV acetylcysteine for drug overdose. Patient has elevated liver enzymes with AST going to 1003 ALT 1752, today levels are AST 609, ALT 1312. Patient had an EKG which is only showing mild increase in QTC up to 452 patient will be monitored on lunchroom monitor. INR is bit elevated to 1.4, improving level is 1.3 on discharge Hepatitis panel was ordered, urine drug screen is positive for cocaine, marijuana, tricyclic antidepressants. Hepatitis panel was reactive, negative for hep A, hep B. Patient was positive for a history of Claudio-Jiménez virus. Patient had a gallbladder ultrasound which was nonspecific periportal wall brightness can be associate with hepatocellular disease correlate clinically. Temperature today is 97.8, heart rate 88, blood pressure 121/68. Patient will be discharged home. We will recommend a follow-up with GI, psychiatry. We are recommending cessation from substance abuse. Patient will be given resources from social worker clinical on discharge regarding substance abuse treatment in outpatient setting. 10/03/2020 Patient is alert and oriented 3, awake alert and appropriate following commands at the time of the exam. Patient denies suicidal ideation today. Patient states that she feels ready for discharge. Patient denies any further need for Hospital services, states that she will follow up with for substance abuse treatment outpatient. If the lab work has been improving, AST and ALT trending down, potassium 3.8, TSH less than 0.015, free T4 1 0.6 when patient will need to follow-up as outpatient. Patient will follow-up with GI, for a positive hepatitis C this admission. Continue to reinforce substance abuse treatment and cessation. Please see medication reconciliation for a list of current medications. Patient Condition at Discharge: Fair Plan - Discharge Summary Discharge Rx Participant: No New Discharge Prescriptions: Continue Vivitrol 380mg 380 mg IM Q28D Discharge Medication List Vivitrol 380mg 380 mg IM Q28D 09/29/20 [History] Follow up Appointment(s)/Referral(s): Annmarie Devine MD [STAFF PHYSICIAN] - 2 Weeks (Hepatitis C follow up) None,Stated [Primary Care Provider] - 1-2 days Activity/Diet/Wound Care/Special Instructions: Please provide patient with a list of rehabilitation services for discharge. Discharge Disposition: HOME SELF-CARE
--- NOTE | 2020-10-03 13:35 | P.PN ---
Progress Note - Text Progress Note Date: 10/03/20 Interval History: Patient was seen resting in bed and awake and orietend and able to participate in the interview. The patient is not reporting any suicidal or homicidal ideation, intention, and/or plan. She is not reporting any auditory or visual hallucinations patient reports some paranoid delusions. The patient is future oriented and is wishing to continue treatment for her substance abuse. She states that she enrolled in an IOP program. She is future oriented. The patient's primary issue is her substance abuse which she acknowledges. The patient just took a shower and states that she is feeling much better and has been able to address her ADLs. Mental Status Exam: General Appearance: Patient is standing by the bedside and appears to be in no acute distress. Behavior: Normal psychomotor activity. Eye contact is appropriate. Speech: The patient's speech is spontaneous, with normal rate, tone, volume, and fluency. Mood/Affect: The patient's mood is "feeling ready to go." Affect is euthymic to bright with appropriate range. Suicidality/Homicidality: The patient vehemently denies any suicidal or homicidal ideation, intention, and/or plan. Perceptions: The patient is not endorsing any auditory or visual hallucinations. Though content/process: Thought content is devoid of any delusional thoughts. Thought process appears to be linear and logical. Memory and concentration: Memory appears to be grossly intact. She is currently alert and oriented in all spheres. Judgment and insight: Judgment and insight has improved over the hospital stay. Vital Signs Temp 97.8 F 10/03/20 11:13 Pulse 88 10/03/20 11:13 Resp 16 10/03/20 11:13 BP 121/68 10/03/20 11:13 Pulse Ox 98 10/03/20 11:13 Intake & Output 10/02/20 10/03/20 10/03/20 18:59 06:59 18:59 Intake Total 500 20 10 Output Total 300 0 Balance 200 20 10 Weight 40 kg 58 kg 58 kg Intake: IV 20 10 Invasive Line 1 20 10 Oral 500 Output: Urine 300 0 Other: Voiding Method Bedside Commode Toilet Toilet # Voids 2 Laboratory Results - Last 24 Hours 10/01/20 10/02/20 10/02/20 15:04 07:51 07:51 Sodium Potassium Chloride Carbon Dioxide Anion Gap BUN Creatinine Est GFR (CKD-EPI)AfAm Est GFR (CKD-EPI)NonAf Glucose Calcium Total Bilirubin AST ALT Alkaline Phosphatase Total Protein Albumin Tumor Marker AFP 4.2 Vitamin B12 2440.0 H Folate >24.0 CMV IgM Ab Non-Reactive EBV Capsid Ag IgG Ab >8.0 EBV Capsid Ag IgG Intrp POSITIVE A EBV Capsid Ag IgM Ab <0.2 EBV Capsid Ag IgM Intrp NEGATIVE EBV Early Antigen IgG 0.2 EBV EA IgG Ab Interp NEGATIVE EBV Nuclear Ag IgG Ab >8.0 EBV Nuc Ag IgG Interp POSITIVE A 10/03/20 07:09 Sodium 139 Potassium 3.8 Chloride 112 H Carbon Dioxide 20 L Anion Gap 7 BUN 5 L Creatinine 0.43 L Est GFR (CKD-EPI)AfAm >90 Est GFR (CKD-EPI)NonAf >90 Glucose 109 H Calcium 8.8 Total Bilirubin 2.1 H AST 609 H ALT 1312 H Alkaline Phosphatase 153 H Total Protein 5.2 L Albumin 2.8 L Tumor Marker AFP Vitamin B12 Folate CMV IgM Ab EBV Capsid Ag IgG Ab EBV Capsid Ag IgG Intrp EBV Capsid Ag IgM Ab EBV Capsid Ag IgM Intrp EBV Early Antigen IgG EBV EA IgG Ab Interp EBV Nuclear Ag IgG Ab EBV Nuc Ag IgG Interp Assessment Acute intoxication - resolved. Mood disorder, unspecified Cocaine use disorder History of opiate abuse Plan: -At this time patient DOES NOT meet criteria for inpatient psychiatric admission. It appears that the patient was intoxicated as a recreational activity and did not intend to overdose or be altered to the point warranting hospitalization. She is vehemently denying any suicidal or homicidal ideation, intention, and/or plan. She is future oriented and desires to continue her substance abuse treatment in the outpatient setting. -Would recommend the following medication changes/additions: No medication changes recommended at this time. -Discontinue 1:1 Sitter. -Recommend social work consult to provide patient with resources for substance abuse. -Patient is currently cleared psychiatrically for discharge. Primary issue is the patient's substance abuse. Patient is cleared for discharge today with recommendations for outpatient follow-up -Psychiatry will sign off at this point. Thank you for letting us but has been in this patient's case. Please reconsult us or contact us if any questions.
[2020-10-03 13:54] LABS: HCV Qualitative Result DETECTED (Not detected); HCV Quant Log 6.46 (<1.08)
[2020-10-03 14:12] LABS: Liver/Kidney Microsome Antibod 1.8 UNITS (<=20)
[2020-10-04 04:55] LABS: Herpes simplex I and/or II IgM 0.28 INDEX (<=0.90); Herpes simplex IgG I Ab 1.49 (< or = 0.90); Herpes simplex IgG II Ab 0.06 (< or = 0.90)
== END 2020-10-03 14:19 | disposition home or self-care (01) | DRG 917 ==
LOC: EC 03:56 → 3SCARD 07:54
PROVIDERS: ADMIT Internal Medicine; ATTEND Internal Medicine
DX: T42.4X2A Poisoning by benzodiazepines, intentional self-harm, initial encounter (principal); G93.41 Metabolic encephalopathy; B17.9 Acute viral hepatitis, unspecified; K50.90 Crohn's disease, unspecified, without complications; T43.592A Poisoning by other antipsychotics and neuroleptics, intentional self-harm, initial encounter; T46.5X2A Poisoning by other antihypertensive drugs, intentional self-harm, initial encounter; B19.20 Unspecified viral hepatitis C without hepatic coma; Z87.891 Personal history of nicotine dependence; F14.10 Cocaine abuse, uncomplicated; F39 Unspecified mood [affective] disorder; R79.1 Abnormal coagulation profile; E07.81 Sick-euthyroid syndrome
CPT/HCPCS: 36415; 36600; 71045; 76705; 80048; 80053; 80074; 80076; 80143; 80179; 80306; 80320; 81025; 82103; 82105; 82140; 82390; 82550; 82607; 82746; 82805; 83516; 84439; 84443; 85025; 85027; 85610; 85730; 86038; 86376; 86645; 86663; 86664; 86665; 86694; 86695; 86696; 87522; 87902; 93005; 96361; 96365; 96366; 96372; 96375; 99285